=== PATIENT | male | born 2005 | race Caucasian/White ===

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

== ENCOUNTER → 2024-02-12 10:24 | Outpatient (BNVA) | payer OTHER, SELFPAY | PROVIDERS: Visit Provider Specialist | DX: S52.552A Other extraarticular fracture of lower end of left radius, initial encounter for closed fracture; W22.01XA Walked into wall, initial encounter; Y93.67 Activity, basketball | CPT/HCPCS: 73110 ==

== ENCOUNTER 2024-02-12 11:53 | Outpatient (CLI) | payer OTHER, SELFPAY | END 2024-02-12 11:54 | disposition home or self-care (01) | LOC: SPT 11:54 | PROVIDERS: Visit Provider Specialist | DX: Z46.89 Encounter for fitting and adjustment of other specified devices (principal); S52.592D Other fractures of lower end of left radius, subsequent encounter for closed fracture with routine healing; X58.XXXD Exposure to other specified factors, subsequent encounter | CPT/HCPCS: 97760; L3982 ==

== ENCOUNTER → 2024-03-11 09:20 | Outpatient (BNVA) | payer OTHER, SELFPAY | PROVIDERS: Visit Provider Specialist | DX: S52.552D Other extraarticular fracture of lower end of left radius, subsequent encounter for closed fracture with routine healing; W22.01XD Walked into wall, subsequent encounter; Y93.67 Activity, basketball | CPT/HCPCS: 73110 ==